=== PATIENT | male | born 1985 | race Caucasian/White ===

== ENCOUNTER → 2016-08-22 | Outpatient (CLI) | payer OTHER ==
[2016-08-22 13:02] LABS: HEMOGLOBIN 13.4 gm/dl (14.0-17.5); RED BLOOD COUNT 4.63 M/UL (4.20-5.50); WHITE BLOOD COUNT 6.7 K/UL (4.5-11.0)
[2016-08-22 13:15] LABS: BUN/CREATININE RATIO 20 (0-10)
== END ==
LOC: LAB 11:51
PROVIDERS: Nurse Practitioner Family
DX: M54.5 Low back pain (principal); R53.83 Other fatigue; R53.81 Other malaise; E16.2 Hypoglycemia, unspecified
CPT/HCPCS: 36415; 72110; 80053; 80061; 83036; 84439; 84443; 85027

== ENCOUNTER → 2020-03-25 | Outpatient (CLI) | payer OTHER | LOC: RAD 15:22 | DX: M54.5 Low back pain (principal); M54.2 Cervicalgia; M54.9 Dorsalgia, unspecified; M47.814 Spondylosis without myelopathy or radiculopathy, thoracic region; M47.816 Spondylosis without myelopathy or radiculopathy, lumbar region | CPT/HCPCS: 72050; 72072; 72110 ==

== ENCOUNTER 2021-01-16 20:44 | Emergency (ER) | payer OTHER ==
[2021-01-16 21:21] LABS: HEMOGLOBIN 14.5 gm/dl (14.0-17.5); RED BLOOD COUNT 4.92 M/UL (4.20-5.50); WHITE BLOOD COUNT 7.9 K/UL (4.5-11.0)
[2021-01-16 21:56] LABS: BUN/CREATININE RATIO 18 (0-10)
== END 2021-01-16 23:00 | disposition home or self-care (01) ==
LOC: ER1 20:44
PROVIDERS: Emergency Medicine
DX: F41.9 Anxiety disorder, unspecified (principal)
CPT/HCPCS: 71045; 80048; 83735; 85025; 93005; 99285